=== PATIENT | female | born 1945 | race Caucasian/White ===

== ENCOUNTER 2024-07-04 10:04 | Emergency (ER) | payer MEDICARE, OTHER, SELFPAY ==
[2024-07-04 10:07] VITALS: BP 161/107
--- NOTE | 2024-07-04 11:07 | ED.GENMED ---
History of Present Illness
General
Chief Complaint: Breathing Problem
Source: patient
Time Seen by Provider: 07/04/24 10:56
History of Present Illness
History of Present Illness:
78yoF with a history of rheumatoid arthritis, hypertension, and GERD presenting for evaluation of cough and shortness of breath. Patient has been having an ongoing cough for about 6 to 7 weeks. She was initially seen at urgent care at symptom
onset and was diagnosed with asthmatic bronchitis. She was prescribed an inhaler and steroids without much improvement. She traveled to [place] for several weeks and just returned 2 days ago. Her symptoms have been persistent. Cough is mostly dry
although patient states it feels like she has something in her chest that she is unable to expectorate. She is also having dyspnea. She denies any chest pain, fevers, leg swelling. She has taken multiple home COVID tests which have been negative.
Past History
Past History
ED Past Medical History: HTN (HCTZ) and Other (RA takes Celebrex)
Phy Exam
General Physical Exam
General Presentation: well appearing and no apparent distress
General age: appears stated age
General Skin: warm and dry
General Habitus: normal
General Mental: alert
Cardiovascular Exam
Cardiovascular Exam: regular rate/rhythm and no edema
Pulmonary Exam
Pulmonary Exam: lungs clear, no rales, no crackles, no rhonchi, no wheezing and other (Frequent dry cough noted with mild conversational dyspnea. Lungs CTA without wheezing or rales.)
[place] Coma Scale
Eye Opening: Spontaneous
Verbal Response: Oriented
Motor Response: Obeys Commands
GCS Total Score: 15
Musculoskeletal Exam
Musculoskeletal Exam: other (No pitting edema in lower extremities)
Skin Exam
Skin Exam: normal color and warm/dry
Psychiatric Exam
Psychiatric Exam: normal mood/affect
Scores
Heart Failure Risk
Heart Failure Risk Score: Not Applicable
Course
Orders/Labs/Results
Orders:
Orders
07/04/24 11:05
Cardiac Monitoring- Treatment ONCE
07/04/24 11:06
CR Chest - 2 Views Urgent
Comment:
Reason For Exam: Cough, SOB
07/04/24 11:09
Electrocardiogram (*1) Urgent
Reason for Study: Shortness of Breath
EKG- Treatment ONCE
07/04/24 11:40
COVID-19 Antigen Urgent
Source: Nasal Swab
Complete Blood Count/With Diff Urgent
Comprehensive Metabolic Panel Urgent
D-Dimer Urgent
NT-proBNP Urgent
PTT Urgent
Comment: ADD ON
Troponin I Urgent
Influenza A+B Rapid Molecular Urgent
ARIELLE Source: Nasal Swab
Specimen Description:
07/04/24 12:26
CT Chest Pe Study Urgent
Comment:
Reason For Exam: SOB, cough, elevated D-dimer
07/04/24 13:06
Add On- LAB Urgent
Tests Added?: PTT
07/04/24 14:05
Albuterol [ProAIR HFA INHALER] 2 puff INH R NOW STA
Abnormal Lab Results
07/04/24
11:40
WBC 11.0 H 10^3/uL
(4.8-10.8)
MCH 31.7 H pg
(27.0-31.0)
Abs Immat Gran (auto) 0.1 H 10^3/uL
(0-0.05)
Absolute Neuts (auto) 7.5 H 10^3/uL
(1.4-6.5)
Absolute Monos (auto) 1.2 H 10^3/uL
(0.1-0.6)
Lymphocytes % 19.2 L %
(20.5-51.1)
Monocytes % 10.7 H %
(1.7-9.3)
APTT 37.2 H Sec
(23.4-35.0)
D-Dimer 2.49 H ug/mlFEU
(0.00-0.50)
AST 49 H U/L
(14-36)
ALT 37 H U/L
(0-35)
07/04/24 11:40
07/04/24 11:40
Vital Signs
Initial and Last Documented VS:
Initial Vital Signs
Temp Pulse Resp BP Pulse Ox
100 F 97 16 161/107 97
07/04/24 10:07 07/04/24 10:07 07/04/24 10:07 07/04/24 10:07 07/04/24 10:07
Last Documented Vital Signs
Temp Pulse Resp BP Pulse Ox
100 F 100 16 133/101 95
07/04/24 10:07 07/04/24 13:45 07/04/24 13:45 07/04/24 14:47 07/04/24 14:48
MDM/Problems Addressed
Differential Diagnosis Includes:
78yoF here with cough and SOB ongoing x 6-7 weeks. Initially diagnosed with asthmatic bronchitis at urgent care. Recent travel to [place]. No CP or leg swelling. She is afebrile and hemodynamically stable. She is well appearing in no distress.
Frequent cough noted on exam. Lungs CTA without wheezing or rales. Differential diagnosis includes but is not limited to: viral syndrome, postnasal drip, GERD, pneumonia, COPD, PE
Initial ED plan: Check cardiac labs, D-dimer, COVID/flu, EKG, and CXR.
*EKG
Interpreted by ED Provider?: Yes
EKG Intrepretation Date: 07/04/24
Heart Rate: 86
Rate: normal
Rhythm: sinus
[place]: left axis deviation
Interval: normal interval
QRS Pattern: normal QRS
Ischemia: no ischemia
*Critical Care Note
Total Time (30-74mins, 75-104mins- exclusive of procedures): Not Applicable
Update Note
Update Note:
Labs reveal a mild leukocytosis with a WBC of 11 as well as mild transaminitis which are nonspecific. EKG shows NSR without ischemic changes. Troponin and BNP WNL. D-dimer elevated and CTA chest subsequently ordered. CT is negative for PE and
infiltrate. Imaging shows moderate emphysema as well as mild fibrotic changes bilaterally. Patient not currently on any treatment for COPD. She was started on a course of prednisone and refill given for albuterol inhaler. She was advised to f/u with
her PCP and pulmonology. ED return precautions discussed. She was discharged in stable condition.
ED Attending Note
-
Portions of this chart may have been created with voice recognition software.� Occasional wrong word or��sound alike� substitutions may have occurred due to the inherent limitations of voice recognition software.
Discharge Plan
Departure
Patient Disposition: Home (Routine Discharge)
Date of Disposition: 07/04/24
Time of Disposition: 13:49
Patient with high blood pressure during this ER visit?: Yes
Discharge Problem:
Acute exacerbation of chronic obstructive pulmonary disease (COPD)
Instructions: Exacerbation of COPD (DC)
Prescriptions:
New
albuterol sulfate 90 mcg/actuation HFA aerosol inhaler
2 puff inhalation Q6H PRN (Reason: shortness of breath or wheezing) Qty: 8.5 0RF
prednisone 20 mg tablet
40 mg PO DAILY 5 Days Qty: 10 0RF
Referrals:
Rudi Fernandez MD [Active] -
José Luis Vasquez DO [Family Provider] -
Activity Restrictions/Additional Instructions:
Take prednisone 40mg for 5 days. Use albuterol inhaler as needed for wheezing/shortness of breath.
Please call today to schedule a follow-up appointment with your family doctor and pulmonology. Return to the ER with any worsening symptoms.
Interventions
Interventions:
*Risk Screen - Suicide Last Done: 07/04/24 10:07
*General Assessment Last Done: 07/04/24 10:07
*Neglect/Abuse Screening Last Done: 07/04/24 10:07
ED- Fall Risk Assessment Last Done: 07/04/24 14:55
*ED COVID-19 Vaccine History Last Done: 07/04/24 14:55
*Nursing Disposition Last Done: 07/04/24 14:55
ED- Cardiac Assessment Last Done: 07/04/24 11:45
ED- Pulmonary Assessment Last Done: 07/04/24 11:45
Discharge Date and Time
Discharge Date/Time: 07/04/24 14:57
Print Language: VINCENTIAN
[2024-07-04 11:38] VITALS: BP 142/104
[2024-07-04 11:54] LABS: % Basophils 0.4 % (0-2); % Eosinophils 0.9 % (0-6); % Immature Granulocytes 0.5 % (0-0.5); % Lymphocytes 19.2 % (20.5-51.1); % Monocytes 10.7 % (1.7-9.3); % Neutrophils 68.3 % (42.2-75.2); Absolute Eosinophils 0.1 10^3/uL (0-0.7); Absolute Immature Granulocytes 0.1 10^3/uL (0-0.05); Absolute Lymphocytes 2.1 10^3/uL (1.2-3.4); Absolute Monocytes 1.2 10^3/uL (0.1-0.6); Absolute Neutrophils 7.5 10^3/uL (1.4-6.5); Hematocrit 41.3 % (37.0-47.0); Hemoglobin 14.3 g/dL (12.0-16.0); Mean Corp Hgb Conc. 34.6 g/dL (33.0-37.0); Mean Corpuscular Hgb 31.7 pg (27.0-31.0); Mean Corpuscular Volume 91.6 fL (81.0-99.0); Mean Platelet Volume 9.9 fL (7.4-10.4); Nucleated Red Blood Cells % 0 %; Platelet Count 298 10^3/uL (130-400); Red Blood Cell Count 4.51 10^6/uL (4.20-5.40); Red Cell Dist. Width 13.2 % (11.5-14.5)
[2024-07-04 12:00] VITALS: BP 136/89
[2024-07-04 12:06] LABS: ALT (SGPT) 37 U/L (0-35); AST (SGOT) 49 U/L (14-36); Albumin 4.7 g/dl (3.5-5.0); Alkaline Phosphatase 85 U/L (38-126); Blood Urea Nitrogen 17 mg/dl (7-17); Calcium 9.9 mg/dl (8.4-10.2); Carbon Dioxide 27 mmol/L (22-30); Chloride 98 mmol/L (98-107); Glucose 87 mg/dl (70-99); Potassium 4.3 mmol/L (3.5-5.1); Sodium 138 mmol/L (135-145); eGFR > 60.00
[2024-07-04 12:11] LABS: D-Dimer 2.49 ug/mlFEU (0.00-0.50)
[2024-07-04 12:18] LABS: NT-proBNP 36.9 pg/ml; Troponin I < 0.012 ng/ml
[2024-07-04 12:36] LABS: COVID-19 Antigen Negative (Negative)
[2024-07-04 12:58] VITALS: BP 141/108
[2024-07-04 13:01] VITALS: BP 143/91
[2024-07-04 14:35] LABS: APTT 37.2 Sec (23.4-35.0)
[2024-07-04 14:47] VITALS: BP 133/101
[2024-07-04] MEDS: ProAIR HFA INHALER 2 PUFF INH (14:47)
== END 2024-07-04 14:57 | disposition home or self-care (01) ==
LOC: EMR 10:04
PROVIDERS: Physician Assistant; EMERGENCY PHYSICIAN Emergency Medicine; FAMILY PHYSICIAN Internal Medicine
DX: J44.1 Chronic obstructive pulmonary disease with (acute) exacerbation (principal); Z11.52 Encounter for screening for COVID-19; R06.02 Shortness of breath; R79.89 Other specified abnormal findings of blood chemistry; I10 Essential (primary) hypertension; J43.9 Emphysema, unspecified; J84.10 Pulmonary fibrosis, unspecified; M06.9 Rheumatoid arthritis, unspecified; K21.9 Gastro-esophageal reflux disease without esophagitis; Z88.5 Allergy status to narcotic agent
CPT/HCPCS: 99285; 94640; 71046; 71275; 80053; 83880; 84484; 85025; 85379; 85730; 87502; 87811; 93005; Q9967

== ENCOUNTER → 2024-08-04 10:00 | Outpatient (REF) | payer MEDICARE, OTHER, SELFPAY | LOC: RCS 10:00 | PROVIDERS: ATTENDING PHYSICIAN Internal Medicine Cardiovascular Disease; FAMILY PHYSICIAN Internal Medicine; REFERRING PHYSICIAN Internal Medicine Rheumatology | DX: R94.31 Abnormal electrocardiogram [ECG] [EKG] (principal) | CPT/HCPCS: 93306 ==